=== PATIENT | male | born 1995 | race African-American/Black ===

== ENCOUNTER 2022-04-20 14:40 | Emergency (ER) | payer MEDICAID ==
[~2022-04-20] VITALS: Ht 180.3 cm; Wt 93.0 kg
[2022-04-20 14:45] VITALS: BP 121/66
[2022-04-20 17:02] LABS: BASOPHILS % 0.9 % (0.0-2.0); EOSINOPHILS % 2.8 % (0.0-5.0); HEMATOCRIT. 43.4 % (42.0-52.0); HEMOGLOBIN. 14.1 g/dL (14.0-18.0); LYMPHOCYTES % 33.9 % (20.0-50.0); MEAN CORPUSCULAR HEMOGLOBIN 26.1 pg (28.0-32.0); MEAN PLATELET VOLUME 8.1 fl (7.4-10.4); MONOCYTES % 10.2 % (2.0-8.0); NEUTROPHILS % 52.2 % (40.0-76.0); PLATELET 233 x1000/uL (130-400); RED BLOOD CELL COUNT 5.42 mill/uL (4.7-6.1)
[2022-04-20 17:05] LABS: CHLORIDE 106 mEq/L (98-107)
== END 2022-04-20 18:00 | disposition home or self-care (01) ==
LOC: ER 14:54
DX: R55 Syncope and collapse (principal); R42 Dizziness and giddiness; Z98.890 Other specified postprocedural states
CPT/HCPCS: 36415; 71045; 80053; 84484; 85025; 93005; 99285